=== PATIENT | female | born 1975 | race Caucasian/White ===

== ENCOUNTER 2018-04-13 19:34 | Emergency (ER) | payer BC ==
[2018-04-13] MEDS: KETOROLAC 60 MG INJ IM (20:56)
== END 2018-04-13 20:57 | disposition home or self-care (01) ==
LOC: FTE 19:34
DX: K08.89 Other specified disorders of teeth and supporting structures (principal); F17.210 Nicotine dependence, cigarettes, uncomplicated
CPT/HCPCS: 81025; 96372; 99284-25

== ENCOUNTER 2018-05-08 19:03 | Emergency (ER) | payer BC ==
[2018-05-08] MEDS: HYDROCODONE/APAP (10/325) TAB PO (20:15)
== END 2018-05-08 22:10 | disposition home or self-care (01) ==
LOC: FTE 19:03
DX: S49.92XA Unspecified injury of left shoulder and upper arm, initial encounter (principal); F17.210 Nicotine dependence, cigarettes, uncomplicated; S52.125A Nondisplaced fracture of head of left radius, initial encounter for closed fracture; S39.92XA Unspecified injury of lower back, initial encounter; W01.0XXA Fall on same level from slipping, tripping and stumbling without subsequent striking against object, initial encounter; Y92.9 Unspecified place or not applicable
CPT/HCPCS: 72100; 73030; 73080-LT; 81025; 99284-25